=== PATIENT | female | born 1980 ===

== ENCOUNTER 2023-03-07 08:05 | Day surgery (SDC) | payer OTHER ==
[2023-03-07] VITALS (15 sets, daily range): BP systolic 128–158; BP diastolic 72–95
[~2023-03-07] VITALS: Ht 167.6 cm; Wt 99.0 kg
[~2023-03-07 08:05] MED LIST: METO50ER PO; ONDA4ODT MM
[2023-03-07 09:29] LABS: BASOPHILS ABSOLUTE AUTO 0.05 K/mm3 (0.00-0.23); BASOPHILS PERCENT AUTO 1 % (0-2); EOSINOPHILS ABSOLUTE AUTO 0.14 K/mm3 (0.00-0.68); EOSINOPHILS PERCENT AUTO 2 % (0-6); Hematocrit 44.4 % (33.0-51.0); Hemoglobin 15.2 g/dL (11.5-16.0); IMMATURE GRAN ABSOLUTE AUTO 0.06 K/mm3 (0.00-0.10); IMMATURE GRAN PERCENT AUTO 1 % (0-1); LYMPHOCYTES ABSOLUTE AUTO 2.28 K/mm3 (0.84-5.20); LYMPHOCYTES PERCENT AUTO 27 % (21-46); MONOCYTES ABSOLUTE AUTO 0.56 K/mm3 (0.16-1.47); MONOCYTES PERCENT AUTO 7 % (4-13); Mean Corpuscular HGB 30.4 pg (26.0-34.0); Mean Corpuscular HGB Conc 34.2 g/dL (31.5-36.5); Mean Corpuscular Volume 89 fL (80-100); Mean Platelet Volume 10.1 fL (9.1-12.4); NEUTROPHILS ABSOLUTE AUTO 5.35 K/mm3 (1.96-9.15); NEUTROPHILS PERCENT AUTO 63 % (41-73); Platelet Count 219 K/mm3 (150-400); RDW Standard Deviation 39.2 fL (35.1-46.3); White Blood Cell Count 8.44 K/mm3 (4.00-11.30)
--- NOTE | 2023-03-07 09:29 | NUR ---
Ambulatory in Day Surgery WITH STEADY GAIT. Surgical site prepped with 2% Chlorhexidine cloth wipe. History, Chart, Medications and Allergies reviewed before start of procedure. Lungs clear T/O to Auscultation. Patient confirms NPO status and agrees with scheduled surgery. Pre-Op teaching done. Pt verbalizes understanding. AT BEDSIDE.
[2023-03-07 09:51] LABS: Bun/Creatinine Ratio 9.8 (12.0-20.0); Calcium, Blood 8.9 mg/dL (8.5-10.1); Creatinine, Blood 0.81 mg/dL (0.40-1.00); Potassium, Blood 4.4 mmol/L (3.5-5.5)
--- NOTE | 2023-03-07 10:07 | NUR ---
UPDATED PATIENT ON DELAY IN ROOM DUE TO PREVIOUS PROCEDURE RUNNING LONG. PT GIVEN HEADPHONES AND REMOTE TO TV. DENIES ANY OTHER NEEDS. WILL CONTINUE TO MONITOR PT.
--- NOTE | 2023-03-07 18:34 | NUR ---
PT ARRIVED TO THE ROOM AT 1710. PT WAS ASSISTED TO THE BATHROOM, SHE WAS SLIGHTLY UNSTEADY ON HER FEET. PT WAS ABLE TO VOID. SHE BECAME NAUSEATED WHILE SITTING ON THE TOILET AND VOMITED. PT WAS ASSISTED TO THE BED, SHE STATED HER PAIN WAS TOLERABLE. PT HAVING A SMALL AMOUNT OF VAGINAL BLEEDING. WILL CONTINUE TO MONITOR.
--- NOTE | 2023-03-07 19:24 | NUR ---
SHIFT SUMMARY PT IS POD#0 FROM LAP TOTAL HYSTER. PAIN MANAGED WITH PO PAIN MEDICATION. PT HAS VOMITED X2 BUT IS NOW TOLERATING PO. PT HAS BEEN INDEPENDENT IN THE ROOM. PLAN FOR POSSIBLE DISCHARGE TONIGHT WHEN PT IS MEETING ALL GOALS. REPORT GIVEN TO HONEY BURNHAM.
--- NOTE | 2023-03-07 20:00 | NUR ---
UPDATE PT STATES TOLERATING PO INTAKE, NO N/V. REPORTS PAIN IN GROIN 12/24 & STATES IT IS TOLERABLE, DENIES NEED FOR PAIN MEDS. VSS. ABLE TO AMBULATE IND TO RESTROOM. VERY MINIMAL LIGHT BLEEDING. PT REQUESTING TO BE DC, WILL INFORM DR HUDSON & MONITOR.
--- NOTE | 2023-03-07 22:56 | NUR ---
D/C *LATE ENTRY* INFORMED DR HUDSON OF PT STATUS. WROTE DC ORDERS & PT DC AROUND [id number].
== END 2023-03-07 21:30 | disposition home or self-care (01) ==
LOC: ORSCMMR 08:05 → ORD 10:00 → ORSCMMR 10:00 → SURS 17:14 → ORSCMMR 21:30
PROVIDERS: Obstetrics & Gynecology
PROC: 8E0W4CZ Robotic Assisted Procedure of Trunk Region, Percutaneous Endoscopic Approach (ICD-10-PCS; principal; 2023-03-07 10:00)
PROC: 0UT94ZZ Resection of Uterus, Percutaneous Endoscopic Approach (ICD-10-PCS; principal; 2023-03-07 10:00)
PROC: 0UT74ZZ Resection of Bilateral Fallopian Tubes, Percutaneous Endoscopic Approach (ICD-10-PCS; principal; 2023-03-07 10:00)
DX: N92.1 Excessive and frequent menstruation with irregular cycle (principal); D25.9 Leiomyoma of uterus, unspecified; R10.2 Pelvic and perineal pain; I10 Essential (primary) hypertension; F17.210 Nicotine dependence, cigarettes, uncomplicated; Z79.899 Other long term (current) drug therapy; E66.9 Obesity, unspecified; Z68.35 Body mass index [BMI] 35.0-35.9, adult
CPT/HCPCS: 58571; S2900; 36415; 80048; 85025; 86850; 86900; 86901; 88307; A9270; J1100; J1580; J1885; J2250; J2405; J2704; J2795; J3010; J7120; S0077